=== PATIENT | male | born 1985 | race Caucasian/White ===

== ENCOUNTER 2018-02-20 16:37 | Emergency (ER) | payer OTHER ==
[2018-02-20 16:55] VITALS: BP 137/82
--- NOTE | 2018-02-20 17:17 | ED Physician Documentation ---
PD HPI UPPER EXT INJURY - Stated complaint Stated Complaint: L HAND LAC - Chief complaint Chief Complaint: Laceration - History obtained from History obtained from: Patient - History of Present Illness Location: Left, Wrist Type of injury: Laceration (from saw blade) Timing - onset: Today Timing - details: Abrupt onset Worsened by: Moving, Palpating Associated symptoms: No: Weakness, Numbness, Tingling Similar symptoms before: Has not had sx before Recently seen: Not recently seen Review of Systems Neurologic: denies: Focal weakness, Numbness PD PAST MEDICAL HISTORY - Past Medical History Endocrine/Autoimmune: None - Past Surgical History Past Surgical History: No - Present Medications Home Medications: Ambulatory Orders Medication Instructions Recorded Confirmed Hydrocodone/Acetaminophen [[place] 1 each PO Q6H PRN #20 tablet 05/05/15 5-325 Tablet] Ondansetron HCl [Zofran] 4 mg PO Q6H PRN #20 tablet 05/05/15 Oseltamivir [Tamiflu] 75 mg PO BID #10 capsule 05/05/15 predniSONE [Deltasone] 40 mg PO DAILY 5 Days tablet 05/05/15 - Allergies Allergies/Adverse Reactions: Allergies Allergy/AdvReac Type Severity Reaction Status Date / Time No Known Drug Allergies Allergy Verified 05/05/15 09:17 - Social History Does the pt smoke?: No Smoking Status: Never smoker Does the pt drink ETOH?: No Does the pt have substance abuse?: No - Immunizations Immunizations are current?: No PD ED PE NORMAL - Vitals Vital signs reviewed: Yes - General General: Alert and oriented X 3, No acute distress, Well developed/nourished - Derm Derm: Normal color, Warm and dry - Extremities Extremities: Other (left wrist with 2 cm laceration radial volar side. ) - Neuro Neuro: No motor deficit, No sensory deficit Results - Vitals Vitals: Oxygen O2 Source Room air Procedures - Laceration (location) left anterior wrist radial side Length in cm: 2 Wound type: Linear, Into subcut fat, Clean Neurovascular status: Sensory intact, Motor intact, Vascular intact Tendon involvement: No: Tendon Injury Anesthesia: Lidocaine 1% with epi Wound Preparation: Irrigated copiously NS Skin layer closure: Nylon, Interrupted, Size #-0 - enter number (4), Sutures - enter # (5) Other: Patient tolerated well, No complications, Neurovascular intact, Dressing applied, Tetanus UTD Complexity: Simple PD MEDICAL DECISION MAKING - ED course Complexity details: considered differential, d/w patient Departure - Departure Disposition: 01 Home, Self Care Clinical Impression: Laceration of left wrist Qualifiers: Encounter type: initial encounter Qualified Code(s): S61.512A - Laceration wit hout foreign body of left wrist, initial encounter Condition: Stable Record reviewed to determine appropriate education?: Yes Instructions: ED Laceration Ext Sutr Stap Tape Comments: It is okay to wash and shower. Clean off the wound twice a day with soap and water, or peroxide and water. Apply some antibiotic ointment to it to keep it moist. Also to watch for signs of infection such as purulence, redness or increasing pain. Return to your primary care or the ER at the specified time for suture removal. Suture removal 9-10 days. Discharge Date/Time: 02/20/18 18:13
[2018-02-20] MEDS ORDERED: BACITRACIN OINT TOP ONE (18:08)
== END 2018-02-20 18:13 | disposition home or self-care (01) ==
LOC: ED 16:37
DX: S61.512A Laceration without foreign body of left wrist, initial encounter (principal); W45.8XXA Other foreign body or object entering through skin, initial encounter
CPT/HCPCS: 12001; 99283; A9270

== ENCOUNTER 2019-05-08 10:12 | Emergency (ER) | payer OTHER ==
--- NOTE | 2019-05-08 12:44 | XRAY Report ---
Reason: R/O Fx Procedure Date: 05/08/2019 Accession Number: [id number] / [id number] Procedure: XR - Ankle 3 View RT CPT Code: Final Report FULL RESULT: EXAM: RIGHT ANKLE RADIOGRAPHY EXAM DATE: 05/08/2019 12:13 PM. CLINICAL HISTORY: Patient heard an audible pop with subsequent swelling of the lateral malleolus while playing with his kids. COMPARISON: None. TECHNIQUE: 3 views. FINDINGS: Bones: Normal. No fractures or bone lesions. Joints: Normal. No effusion. No subluxations. The ankle mortise is normally aligned. Soft Tissues: Normal. No soft tissue swelling. IMPRESSION: No fracture or significant soft tissue swelling identified. RADIA
--- NOTE | 2019-05-08 14:00 | ED Physician Documentation ---
PD HPI LOWER EXT INJURY - Stated complaint Stated Complaint: RT ANKLE PX - Chief complaint Chief Complaint: Ext Problem - History obtained from History obtained from: Patient, Family - History of Present Illness PD HPI LOW EXT INJURY LOCATION: Right, Ankle Type of injury: Twist Where injury occurred: Other (basketball) Timing - onset: Yesterday Timing - duration: Days (1) Timing - details: Gradual onset Pain level max: 8 Pain level now: 6 Improved by: Rest, Ice, Immobilization Worsened by: Moving, Palpating Associated symptoms: No: Weakness, Numbness, Tingling, Swelling, Discolored Contributing factors: No: Anticoagulated Recently seen: Not recently seen Review of Systems Musculoskeletal: denies: Neck pain, Back pain Neurologic: denies: Focal weakness, Numbness, Head injury PD PAST MEDICAL HISTORY - Past Medical History Past Medical History: Yes Endocrine/Autoimmune: None - Past Surgical History Past Surgical History: No - Present Medications Home Medications: Ambulatory Orders Medication Instructions Recorded Confirmed Hydrocodone/Acetaminophen [[place] 1 each PO Q6H PRN #20 tablet 05/05/15 5-325 Tablet] Ondansetron HCl [Zofran] 4 mg PO Q6H PRN #20 tablet 05/05/15 Oseltamivir [Tamiflu] 75 mg PO BID #10 capsule 05/05/15 predniSONE [Deltasone] 40 mg PO DAILY 5 Days tablet 05/05/15 Ibuprofen [Motrin] 800 mg PO Q8H PRN #30 tablet 05/08/19 - Allergies Allergies/Adverse Reactions: Allergies Allergy/AdvReac Type Severity Reaction Status Date / Time No Known Drug Allergies Allergy Verified 05/08/19 10:25 - Social History Does the pt smoke?: No Smoking Status: Never smoker Does the pt drink ETOH?: No Does the pt have substance abuse?: No - Immunizations Immunizations are current?: No PD ED PE NORMAL - Vitals Vital signs reviewed: Yes - General General: Alert and oriented X 3, No acute distress - HEENT HEENT: Moist mucous membranes - Neck Neck: Supple, no meningeal sign - Derm Derm: Warm and dry - Extremities Extremities: Other (R ankle - TTP R ankle lateral malleolus. o/w normal exam foot, ankle and prox tib/fib. NVI. No deformity.) - Neuro Neuro: Alert and oriented X 3 - Psych Psych: Normal mood, Normal affect Results - Vitals Vitals: Vital Signs - 24 hr 05/08/19 10:25 Temperature 36.5 C Heart Rate 81 Respiratory 14 Rate Blood Pressure 137/80 H O2 Saturation 97 Oxygen O2 Source Room air - Rads (name of study) R ankle xray Radiology: Prelim report reviewed, EMP read contemporaneously, See rad report (No fracture or significant soft tissue swelling identified. ) PD MEDICAL DECISION MAKING - ED course Complexity details: reviewed results, re-evaluated patient, considered differential, d/w patient ED course: Patient with a right ankle sprain. No acute findings on x-ray. Placed in a gel splint for comfort. Declines crutches. Neurovascular intact. Patient counseled regarding signs and symptoms for which I believe and urgent re- evaluation would be necessary. Patient with good understanding of and agreement to plan and is comfortable going home at this time This document was made in part using voice recognition software. While efforts are made to proofread this document, sound alike and grammatical errors may occur. Departure - Departure Disposition: 01 Home, Self Care Clinical Impression: Right ankle sprain Qualifiers: Encounter type: initial encounter Involved ligament of ankle: unspecified ligament Qualified Code(s): S93.401A - Sprain of unspecified ligament of right ankle, initial encounter Condition: Good Instructions: ED Sprain Ankle Follow-Up: your,doctor in 1 week [Other] Prescriptions: Ibuprofen [Motrin] 800 mg PO Q8H PRN #30 tablet PRN Reason: PAIN &/OR FEVER Comments: You can use the Motrin as needed for pain. There are no fractures on your x-ray today. You may bear weight as tolerated. The air splint will help to support the ankle as this heals.
[2019-05-08 14:03] VITALS: BP 139/79
== END 2019-05-08 14:04 | disposition home or self-care (01) ==
LOC: ED 10:12
DX: S93.401A Sprain of unspecified ligament of right ankle, initial encounter (principal); X50.1XXA Overexertion from prolonged static or awkward postures, initial encounter; Y93.67 Activity, basketball
CPT/HCPCS: 99283; 99284

== ENCOUNTER 2019-06-25 14:47 | Emergency (ER) | payer OTHER ==
[2019-06-25 14:57] VITALS: BP 167/92
[2019-06-25] MEDS ORDERED: LIDOCAINE 2% 50 ML MDV SUBQ STA (15:16)
[2019-06-25] MEDS ORDERED: LIDOCAINE-MPF 2% 5 ML VIAL SUBQ STA (15:19)
[2019-06-25] MEDS ORDERED: LIDOCAINE 1% 2 ML VIAL ONE (15:20)
--- NOTE | 2019-06-25 15:25 | ED Physician Documentation ---
History of Present Illness - Stated complaint Stated Complaint: L FINGER LAC - Chief complaint Chief Complaint: Laceration - History obtained from History obtained from: Patient - History of Present Illness Timing: Today Pain level max: 3 Pain level now: 2 - Additonal information Additional information: 34-year-old male, right-handed presents with a laceration to the left index finger. He suffered a partial tip amputation from a razor blade. Tetanus is up-to-date. Nothing makes it better or worse. Review of Systems Constitutional: denies: Fever GI: denies: Vomiting Skin: denies: Rash PD PAST MEDICAL HISTORY - Past Medical History Past Medical History: Yes Cardiovascular: None Respiratory: None Neuro: None Endocrine/Autoimmune: None GI: None : None HEENT: Chronic vision loss Psych: None Musculoskeletal: None Derm: None - Past Surgical History Past Surgical History: No - Present Medications Home Medications: Ambulatory Orders Medication Instructions Recorded Confirmed Hydrocodone/Acetaminophen [[place] 1 each PO Q6H PRN #20 tablet 05/05/15 5-325 Tablet] Ondansetron HCl [Zofran] 4 mg PO Q6H PRN #20 tablet 05/05/15 Oseltamivir [Tamiflu] 75 mg PO BID #10 capsule 05/05/15 predniSONE [Deltasone] 40 mg PO DAILY 5 Days tablet 05/05/15 Ibuprofen [Motrin] 800 mg PO Q8H PRN #30 tablet 05/08/19 - Allergies Allergies/Adverse Reactions: Allergies Allergy/AdvReac Type Severity Reaction Status Date / Time No Known Drug Allergies Allergy Verified 05/08/19 10:25 - Social History Does the pt smoke?: No Smoking Status: Never smoker Does the pt drink ETOH?: No Does the pt have substance abuse?: No - Immunizations Immunizations are current?: Yes - POLST Patient has POLST: No PD ED PE NORMAL - Vitals Vital signs reviewed: Yes - General General: Alert and oriented X 3, No acute distress - Derm Derm: Warm and dry - Extremities Extremities: Other - Neuro Neuro: Alert and oriented X 3 PD ED PE EXPANDED - Extremities ZULY UE/Hands Visual: 1 - laceration (1 cm oval avulsion. No bone visible. Neurovascular intact. No nail injury) Results - Vitals Vitals: Vital Signs - 24 hr 06/25/19 14:56 Temperature 37 C Heart Rate 85 Respiratory 14 Rate Blood Pressure 167/92 H O2 Saturation 98 Oxygen O2 Source Room air Procedures - Laceration (location) Left index finger Length in cm: 1 Wound type: Into subcut fat, Other (oval) Neurovascular status: Sensory intact, Motor intact, Vascular intact Tendon involvement: Tendon intact Anesthesia: Lidocaine 1% Wound Preparation: Irrigated copiously NS, Wound explored Skin layer closure: Dermabond Other: Patient tolerated well, No complications, Neurovascular intact Complexity: Simple PD MEDICAL DECISION MAKING - ED course Complexity details: considered differential, d/w patient ED course: Wound was cleansed and repaired with Dermabond. Dressing applied. Warnings of infection and instructions on wound care given at bedside. Also counseled on how to minimize scarring. Tetanus up-to-date patient counseled regarding signs and symptoms for which I believe and urgent re-evaluation would be necessary. Patient with good understanding of and agreement to plan and is comfortable going home at this time This document was made in part using voice recognition software. While efforts are made to proofread this document, sound alike and grammatical errors may occur. Departure - Departure Disposition: 01 Home, Self Care Clinical Impression: Laceration of left index finger Qualifiers: Encounter type: initial encounter Damage to nail status: without damage Foreign body presence: without foreign body Qualified Code(s): S61.211A - Laceration without foreign body of left index finger without damage to nail, initial encounter Condition: Good Instructions: ED Laceration Ext Skin Glue Follow-Up: OC CHAPARRO MD [Primary Care Provider] - As Needed Comments: Keep the wound clean. Return if you worsen. Return especially for redness, swelling or drainage from the wound. This will gradually heal over the next week or so.
[2019-06-25] MEDS ORDERED: LIDOCAINE 2% 50 ML MDV SUBQ SCH (16:00)
== END 2019-06-25 15:30 | disposition home or self-care (01) ==
LOC: ED 14:47
DX: S61.211A Laceration without foreign body of left index finger without damage to nail, initial encounter (principal); W26.8XXA Contact with other sharp object(s), not elsewhere classified, initial encounter; Y92.009 Unspecified place in unspecified non-institutional (private) residence as the place of occurrence of the external cause
CPT/HCPCS: 12001; 99282; 99283

== ENCOUNTER 2019-11-29 13:57 | Emergency (ER) | payer OTHER ==
[2019-11-29 14:09] VITALS: BP 129/85
--- NOTE | 2019-11-29 14:20 | ED Physician Documentation ---
History of Present Illness - Stated complaint Stated Complaint: R FOOT INJ - Chief complaint Chief Complaint: Laceration - Additonal information Additional information: 34-year-old male presents to the emergency department with pain and swelling on the sole of his right foot. He reports stepping on an exposed nail through flip-flops 3 days ago. He has had pain since but this a.m. he noted increased swelling and milky drainage from the sole of the foot. He has pain with weightbearing. Tetanus is up-to-date within the last 2 years. Patient denies any history of diabetes Review of Systems Constitutional: reports: Reviewed and negative Eyes: reports: Reviewed and negative Nose: reports: Reviewed and negative Throat: reports: Reviewed and negative Cardiac: reports: Reviewed and negative Respiratory: reports: Reviewed and negative GI: reports: Reviewed and negative : reports: Reviewed and negative Skin: reports: Lesions Musculoskeletal: reports: Extremity pain (right foot) Neurologic: reports: Reviewed and negative PD PAST MEDICAL HISTORY - Past Medical History Past Medical History: Yes Cardiovascular: None Respiratory: None Neuro: None Endocrine/Autoimmune: None GI: None : None HEENT: Chronic vision loss, Other Psych: None Musculoskeletal: None Derm: None - Past Surgical History Past Surgical History: No - Present Medications Home Medications: Ambulatory Orders Medication Instructions Recorded Confirmed Gentamicin 0.3% Ophth Drops 1 drops OPTH BID 7 Days #1 bottle 09/01/19 [Garamycin] traMADol [Ultram] 100 mg PO Q6H PRN 2 Days #8 tablet 09/01/19 Cephalexin [Keflex] 500 mg PO Q6H #28 capsule 11/29/19 Ciprofloxacin HCl [Cipro] 500 mg PO BID #14 tablet 11/29/19 - Allergies Allergies/Adverse Reactions: Allergies Allergy/AdvReac Type Severity Reaction Status Date / Time No Known Drug Allergies Allergy Verified 11/29/19 14:09 - Social History Does the pt smoke?: No Smoking Status: Never smoker Does the pt drink ETOH?: Yes Does the pt have substance abuse?: No - Immunizations Immunizations are current?: Yes - POLST Patient has POLST: No PD ED PE NORMAL - General General: Alert and oriented X 3, No acute distress, Well developed/nourished - Cardiac Cardiac: RRR - Respiratory Respiratory: No respiratory distress, Clear bilaterally - Extremities Extremities: No deformity. 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 The nail was embedded through rubber soled flip-flops. He was able to express purulent drainage this a.m. X-ray of the foot shows no obvious foreign body or fracture (read independently by myself). Tetanus is up-to-date. We will place this gentleman on Cipro and cephalexin to cover both staph/strep and Pseudomonas. Patient also advised warm Epson salt soaks. He will follow-up with [facility]. Emergent return precautions discussed Departure - Departure Disposition: 01 Home, Self Care Clinical Impression: Puncture wound Condition: Stable Record reviewed to determine appropriate education?: Yes Instructions: ED Wound Puncture General Prescriptions: Ciprofloxacin HCl [Cipro] 500 mg PO BID #14 tablet Cephalexin [Keflex] 500 mg PO Q6H #28 capsule Comments: Parker the x-ray of your foot does not show any obvious foreign body or fracture.Is important to start antibiotics now that you have an infection. Please take the Cipro and Keflex as prescribed. Follow-up with [facility] within the next week. If despite the oral antibiotics you are having increased pain fevers redness swelling or milky drainage please return to the emergency department for a second look.
--- NOTE | 2019-11-29 14:39 | XRAY Report ---
PROCEDURE: Foot 3 View RT INDICATIONS: STEPPED ON NAIL TECHNIQUE: 3 views of the foot were acquired. COMPARISON: none FINDINGS: Bones: No fractures or dislocations. No suspicious bony lesions. Soft tissues: No tibiotalar joint effusion. Achilles tendon appears normal. No radio-opaque foreig n body. IMPRESSION: No visualized acute fracture or dislocation. However, occult injury cannot be excluded. Recommend chava rt interval imaging follow-up in 7-10 days as clinically indicated for additional evaluation. Reviewed by: Dominique Cole MD on 11/29/2019 2:37 PM PDT Approved by: Dominique Cole MD on 11/29/2019 2:37 PM PDT Station ID: [id number]
== END 2019-11-29 14:40 | disposition home or self-care (01) ==
LOC: ED 13:57
DX: S91.331A Puncture wound without foreign body, right foot, initial encounter (principal); W22.09XA Striking against other stationary object, initial encounter
CPT/HCPCS: 99283; 99284

== ENCOUNTER 2022-07-07 08:30 | Outpatient (CLI) | payer OTHER ==
--- NOTE | 2022-07-07 17:01 | XRAY Report ---
PROCEDURE: Arthrogram Needle Placement INDICATIONS: PAIN IN LEFT SHOULDER CONTRAST: Dilute Gadavist FLUOROSCOPY TIME: 0.5 TECHNIQUE: The indications, alternatives, benefits, risks, and complications of the procedure were explained to the patient. Written informed consent was obtained and placed in the chart. The shoulder was examin ed fluoroscopically and a site for needle placement chosen for entry into the glenohumeral joint from an anterior approach. The skin was prepped and draped in the usual fashion, and 1% lidocaine infilt rated from skin down to joint capsule. A spinal needle was inserted into the glenohumeral joint, and a small amount of iodinated contrast media injected to confirm intra-articular placement of the need le tip. This was followed by approximately 12 mL dilute solution of a gadolinium containing MR contr ast agent. The needle was removed and a dressing was applied. The patient was given postprocedural instructions and sent to the MR suite for MR imaging. FINDINGS: A single fluoroscopic spot image demonstrates intra-articular location of injected iodinated contrast . IMPRESSION: Successful fluoroscopically guided administration of dilute Gadolinium solution into the shoulder adelia bustillos for MR arthrogram. Reviewed by: Violet Deleon MD on 07/07/2022 5:00 PM PDT Approved by: Violet Deleon MD on 07/07/2022 5:00 PM PDT Station ID: [id number]
--- NOTE | 2022-07-07 20:45 | MRI Report ---
PROCEDURE: ARTHROGRAM SHOULDER - LT INDICATIONS: PAIN IN LEFT SHOULDER TECHNIQUE: After the administration of 12 mL of dilute intra-articular Gadolinium contrast, oblique coronal T1 a nd T2 spin echo with fat saturation, oblique sagittal T1 spin echo with and without fat saturation, o blique sagittal T2 fast spin echo with fat saturation, axial T1 spin echo with fat saturation through the shoulder. COMPARISON: None. FINDINGS: Image quality: Excellent. Rotator cuff: Low-grade articular and bursal surface partial-thickness tear involving distal supraspi natus at its insertion on humeral head is seen extending to musculotendinous junction. Distal infrasp inatus tendinosis is noted. Distal subscapularis tendon is intact. No full-thickness rotator cuff ten don rupture.. No rotator cuff muscle atrophy on sagittal images. Bones and bursae: No bone marrow contusions or fractures. [id number] acromioclavicular joint o steoarthritic changes are seen with joint space narrowing, subchondral sclerosis and downward osteoph yte formation depressing on musculotendinous junction of supraspinatus.. The acromion demonstrates c onventional anatomy, without an os acromiale. Moderate glenohumeral joint osteoarthritic changes are seen with joint space narrowing, subchondral sclerosis and prominent inferior marginal osteophyte fo rmation. Capsule and soft tissues: There is signal abnormality, contour irregularity and contrast extension in superior anterior labrum at 12 to 2:00 position suggestive of superior anterior labral tear. There i s also suggestion of posterior inferior labral tear at 7 to 9:00 position with small adjacent perilab ral cyst measures 1 x 0.6 cm in size. Signal abnormality and contrast extension in anterior inferior labrum at 4 to 6:00 position is also noted. The glenohumeral ligaments appear intact. The long head of the biceps tendon appears thickened with intrasubstance T2 hyperintense signal. The rotator inter angel appears normal, without fibrosis. The coracohumeral ligament is of normal thickness. No intra-a rticular bodies. IMPRESSION: 1. Low-grade articular and bursal surface partial-thickness tear involving distal supraspinatus exten ding to musculotendinous junction. Distal infraspinatus tendinosis. No full-thickness rotator cuff te ndon rupture. 2. Mild to moderate acromioclavicular joint osteoarthritis and moderate glenohumeral joint osteoarthr itis. 3. Suggestion of superior anterior labral tear at 12 to 2:00 position, anterior inferior labral tear at 4 to 6:00 position and posterior inferior labral tear at 7 to 9:00 position with adjacent perilabr al cyst. 4. Proximal long head of biceps tendinosis. Reviewed by: Bradeen Villagomez MD on 07/07/2022 8:43 PM PDT Approved by: Braeden Villagomez MD on 07/07/2022 8:43 PM PDT Station ID: [id number]
== END 2022-07-07 08:31 | disposition home or self-care (01) ==
LOC: DI 08:30
DX: M75.112 Incomplete rotator cuff tear or rupture of left shoulder, not specified as traumatic (principal); M19.012 Primary osteoarthritis, left shoulder; M67.922 Unspecified disorder of synovium and tendon, left upper arm
CPT/HCPCS: 23350; 73222; 77002; A9585; Q9966

== ENCOUNTER 2022-07-10 10:33 | Emergency (ER) | payer OTHER ==
[2022-07-10] MEDS ORDERED: KETOROLAC 60 MG/2 ML VIAL IM STA (11:38)
[2022-07-10 12:00] LABS: BASOPHILS % (AUTO) 0.4 %; EOSINOPHILS % (AUTO) 0.3 %; HCT - HEMATOCRIT 43.2 % (42.0-52.0); HGB - HEMOGLOBIN 14.3 g/dL (14.0-18.0); LYMPHOCYTES # (AUTO) 0.6 10^3/uL (1.5-3.5); LYMPHOCYTES % (AUTO) 7.6 %; MEAN CORPUSCULAR HEMOGLOBIN 29.1 pg (27.0-31.0); MEAN CORPUSCULAR HGB CONC 33.1 g/dL (32.0-36.0); MONOCYTES # (AUTO) 0.6 10^3/uL (0.0-1.0); MONOCYTES % (AUTO) 8.7 %; NEUTROPHILS # (AUTO) 6.1 10^3/uL (1.5-6.6); NEUTROPHILS % (AUTO) 82.6 %; PLT - PLATELET COUNT 148 10^3/uL (130-450); RED BLOOD COUNT 4.91 10^6/uL (4.70-6.10); RED CELL DISTRIBUTION WIDTH 11.6 % (12.0-15.0); WHITE BLOOD COUNT 7.3 x10^3/uL (4.8-10.8)
[2022-07-10 12:16] LABS: CALCIUM 8.5 mg/dL (8.5-10.3); CREATININE 1.3 mg/dL (0.6-1.2); CRP - C-REACTIVE PROTEIN 10.6 mg/dL (0-1.0); POTASSIUM 3.3 mmol/L (3.5-5.0)
[2022-07-10 12:18] VITALS: BP 133/72
--- NOTE | 2022-07-10 12:40 | ED Physician Documentation ---
History of Present Illness - Stated complaint Stated Complaint: LT SHOULDER PX - Chief complaint Chief Complaint: Ext Problem - History obtained from History obtained from: Patient - History of Present Illness Timing: How many days ago (4) Pain level max: 8 Pain level now: 6 - Additonal information Additional information: 37-year-old male presents with left shoulder pain. Worse with movement, better with rest. He states that he had an arthrogram/MRI done approximately 4 days ago. The next day noted increased pain to the shoulder. States pain is steadily increased since that time. No fevers. No chills. No redness. No numbness or tingling. Took Tylenol without relief. States it feels better hanging straight down Review of Systems Constitutional: denies: Fever, Chills GI: denies: Vomiting, Diarrhea Skin: denies: Rash PD PAST MEDICAL HISTORY - Past Medical History Cardiovascular: None Respiratory: None Neuro: None Endocrine/Autoimmune: None GI: None : None HEENT: Chronic vision loss Psych: None Musculoskeletal: None Derm: None - Past Surgical History Past Surgical History: No - Present Medications Home Medications: Ambulatory Orders Medication Instructions Recorded Confirmed HYDROcod/ACETAM 5/325 [[place] 5/325] 1 tab PO Q4H PRN #15 tablet 11/03/21 Meloxicam [Mobic] 7.5 mg PO BID PRN #20 tablet 07/10/22 Oxycodone HCl/Acetaminophen 1 - 2 each PO Q6H PRN #14 tablet 07/10/22 [Percocet 5-325 mg Tablet] MDD 6 tabs - Allergies Allergies/Adverse Reactions: Allergies Allergy/AdvReac Type Severity Reaction Status Date / Time No Known Drug Allergies Allergy Verified 07/10/22 10:41 - Social History Does the pt smoke?: No Smoking Status: Never smoker Does the pt drink ETOH?: Yes Does the pt have substance abuse?: No - Immunizations Immunizations are current?: Yes - POLST Patient has POLST: No PD ED PE NORMAL - Vitals Vital signs reviewed: Yes - General General: Alert and oriented X 3, No acute distress - HEENT HEENT: Moist mucous membranes - Neck Neck: Supple, no meningeal sign - Derm Derm: Warm and dry - Extremities Extremities: Other - Neuro Neuro: Alert and oriented X 3 - Free text exam Free text exam: Tender to palpation over the left shoulder, mainly anterior near where the injection was performed. There is small bruising at the site. There are no skin changes. No redness. There is pain with external rotation of the glenohumeral joint. There is limited range of motion with abduction, external rotation, flexion and extension of the joint. Internal rotation feels the best. Neurovascular intact. Results - Vitals Vitals: Vital Signs - 24 hr 07/10/22 07/10/22 10:37 12:18 Temperature 36.8 C Heart Rate 108 H 90 Respiratory 16 13 Rate Blood Pressure 140/78 H 133/72 H O2 Saturation 97 100 Oxygen O2 Source Room air - Labs Labs: Laboratory Tests 07/10/22 07/10/22 07/10/22 11:54 11:54 11:54 WBC 7.3 RBC 4.91 Hgb 14.3 Hct 43.2 MCV 88.0 MCH 29.1 MCHC 33.1 RDW 11.6 L Plt Count 148 MPV 10.0 Neut # (Auto) 6.1 Lymph # (Auto) 0.6 L [place] # (Auto) 0.6 Eos # (Auto) 0.0 Baso # (Auto) 0.0 Absolute Nucleated RBC 0.00 Nucleated RBC % 0.0 ESR 18 H Sodium 138 Potassium 3.3 L Chloride 102 Carbon Dioxide 28 Anion Gap 8.0 BUN 19 Creatinine 1.3 H Estimated GFR (MDRD) 61 L Glucose 188 H Calcium 8.5 C-Reactive Protein 10.6 H PD Medical Decision Making - ED course Complexity details: reviewed results, re-evaluated patient, considered differential, d/w patient, d/w bridal consultant ED course: No significant findings on CBC. Sed rate mildly elevated at 18 and CRP is elevated at 10.6. Discussed the case with Dr. Fischer, orthopedics on-call, suspect that this is increased pain secondary to the recent arthrogram. Pain improved with ketorolac. Will place on anti-inflammatory medications as well as a short course of narcotic pain medication for breakthrough. Patient declines a sling. We will have him follow-up with his PCP for further care. No evidence of septic joint at this time. Patient counseled regarding signs and symptoms for which I believe and urgent re-evaluation would be necessary. Patient with good understanding of and agreement to plan and is comfortable going home at this time This document was made in part using voice recognition software. While efforts are made to proofread this document, sound alike and grammatical errors may occur. Departure - Departure Disposition: 01 Home, Self Care Clinical Impression: Shoulder pain Qualifiers: Chronicity: acute Laterality: left Qualified Code(s): M25.512 - Pain in left shoulder Condition: Good Instructions: ED Torn Rotator Cuff Follow-Up: TANJA CHEEMA MD [Primary Care Provider] - Within 1 week Prescriptions: Meloxicam [Mobic] 7.5 mg PO BID PRN #20 tablet PRN Reason: Pain Oxycodone HCl/Acetaminophen [Percocet 5-325 mg Tablet] 1 - 2 each PO Q6H PRN #14 tablet MDD 6 tabs PRN Reason: pain Comments: Please follow-up with your doctor for further care. Your testing today does not show any significant abnormalities, the inflammation is not uncommon following your procedure. I did speak with Dr. Fischer, orthopedics today. Continue to gently move your arm as well. [facility] [place]. I am prescribing a short course of narcotic pain medication for you. These are potentially dangerous and addictive medications that should be used carefully. These medications may constipate you. Take an [id number] stool softener (docusate) twice daily with plenty of water while taking these medications. If you go 24 hours without a bowel movement, take [id number] miralax, per package instructions. Do not drink or drive while taking these medications. If you received narcotic or sedating medications while in the emergency department, do not drive for 24 hours. Store this medication in a safe, secure place and out of reach of children. It is a violation of federal law to give or sell this medication to another person or to use in a manner other than prescribed. The ED will not refill narcotic prescriptions, including prescriptions lost or stolen. To dispose of unwanted medications: 1. [facility] at [address] in [place] has a medication drop box. They accept prescription medications (in pill form) Wednesday through Wednesday 9:00 a.m. to 5:00 p.m. 2. [facility] accepts prescription medications (in pill form only) for disposal year round. Call for more information. 3. Contact the [facility] for the next [facility] sponsored prescription drug collection event. , [phone], or [phone]; Discharge Date/Time: 07/10/22 12:44
== END 2022-07-10 12:44 | disposition home or self-care (01) ==
LOC: ED 10:33
DX: M25.512 Pain in left shoulder (principal)
CPT/HCPCS: 36415; 80048; 85025; 85651; 86140; 96372; 99283; 99284

== ENCOUNTER 2022-07-16 16:24 | Emergency (ER) | payer OTHER ==
[~2022-07-16 16:24] MED LIST: ROPIVACAINE 0.2% PF 10 ML VIAL SUBQ ONE
[2022-07-16] MEDS ORDERED: ROPIVACAINE 0.2% PF 20 ML AMPULE SUBQ ONE (16:50)
[2022-07-16] MEDS ORDERED: LIDOCAINE 1%-EPI 1:100000 20 ML MDV SUBQ STA (16:50)
--- NOTE | 2022-07-16 16:51 | ED Physician Documentation ---
PD HPI UPPER EXT INJURY - Stated complaint Stated Complaint: SEVERE SHOULDER PX - Chief complaint Chief Complaint: Ext Problem - History obtained from History obtained from: Patient - Additonal information Additional information: 37-year-old gentleman had been dealing with some left shoulder pain, nondominant for quite some time. He had an arthrogram with MRI on the . The MRI demonstrated articular and bursal surface partial-thickness tear of the distal supraspinatus, distal infraspinatus tendinosis, no full-thickness rotator cuff tendon rupture. 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 Suggestion of superior anterior labral tear, anterior inferior labral tear and posterior inferior labral tear and proximal long head biceps tendinosis. The next day he woke up with pain that was much worse and different than his usual shoulder pain and since then has been progressive. He saw my partner a few days ago at which point he had a normal white count, and mildly elevated ESR and CRP. He continues to have worsening pain. No fevers. PD PAST MEDICAL HISTORY - Past Medical History Cardiovascular: None Respiratory: None Neuro: None Endocrine/Autoimmune: None GI: None : None HEENT: Chronic vision loss Psych: None Musculoskeletal: None Derm: None - Past Surgical History Past Surgical History: No - Present Medications Home Medications: Ambulatory Orders Medication Instructions Recorded Confirmed Meloxicam [Mobic] 7.5 mg PO BID PRN #20 tablet 07/10/22 Oxycodone HCl/Acetaminophen 1 - 2 each PO Q6H PRN #14 tablet 07/10/22 [Percocet 5-325 mg Tablet] MDD 6 tabs - Allergies Allergies/Adverse Reactions: Allergies Allergy/AdvReac Type Severity Reaction Status Date / Time No Known Drug Allergies Allergy Verified 07/16/22 16:30 - Social History Does the pt smoke?: No Smoking Status: Never smoker Does the pt drink ETOH?: Yes Does the pt have substance abuse?: No - Immunizations Immunizations are current?: Yes - POLST Patient has POLST: No PD ED PE NORMAL - Vitals Vital signs reviewed: Yes - General General: Alert and oriented X 3, No acute distress - Back Back: No CVA TTP, No spinal TTP - Derm Derm: Normal color, Warm and dry - Extremities Extremities: Other (The left shoulder appears grossly normal. There is some ecchymosis anteriorly from the injection previously. He is unable to range it at all. It is not red or hot.) - Neuro Neuro: Alert and oriented X 3, Normal speech Results - Vitals Vitals: Vital Signs - 24 hr 07/16/22 16:27 Temperature 36.8 C Heart Rate 90 Respiratory 16 Rate Blood Pressure 151/84 H O2 Saturation 100 Oxygen O2 Source Room air - Labs Labs: Microbiology 07/16/22 17:15 Body Fluid Culture - Preliminary Synovial Fluid Laboratory Tests 07/16/22 07/16/22 07/16/22 17:03 17:03 17:03 WBC 5.4 RBC 4.87 Hgb 13.9 L Hct 43.0 MCV 88.3 MCH 28.5 MCHC 32.3 RDW 11.9 L Plt Count 214 MPV 9.5 Neut # (Auto) 3.9 Lymph # (Auto) 1.1 L [place] # (Auto) 0.4 Eos # (Auto) 0.0 Baso # (Auto) 0.0 Absolute Nucleated RBC 0.00 Nucleated RBC % 0.0 ESR 49 H Sodium 139 Potassium 3.8 Chloride 102 Carbon Dioxide 27 Anion Gap 10.0 BUN 22 H Creatinine 1.1 Estimated GFR (MDRD) 75 L Glucose 118 H Calcium 8.4 L C-Reactive Protein 5.4 H Procalcitonin Fluid Source Fluid Color Fluid Clarity Fluid WBC Fluid RBC 07/16/22 07/16/22 17:03 17:15 WBC RBC Hgb Hct MCV MCH MCHC RDW Plt Count MPV Neut # (Auto) Lymph # (Auto) [place] # (Auto) Eos # (Auto) Baso # (Auto) Absolute Nucleated RBC Nucleated RBC % ESR Sodium Potassium Chloride Carbon Dioxide Anion Gap BUN Creatinine Estimated GFR (MDRD) Glucose Calcium C-Reactive Protein Procalcitonin 0.10 Fluid Source JOINT Fluid Color YELLOW Fluid Clarity TURBID Fluid WBC 152028 Fluid RBC 7000 Procedures - Arthrocentesis Joint: Shoulder, Left Preparation: Consent obtained, Sterile prep and drape Anesthesia: Lidocaine 1%, Other Fluid: Sent for cell count, Sent for crystals, Fluid obtained - cc (15ml), Sent for gram stain, Purulent Aftercare: Dressing applied, Patient tolerated well (did get vagal) PD Medical Decision Making - ED course ED course: 37-year-old gentleman had left shoulder MRI with arthrogram on the and has progressive pain ever since. Physically the joint does not look infected, but of course that is concerning given the time course. As such the patient consented for arthrocentesis and this was done and grossly purulent material was obtained. We do not have orthopedics video production specialist. I discussed the case initially with Dr. Campos Power at [facility] who accepts and recommends ED to ED transfer. Subsequently excepted to [facility] ED by Dr. Bowens. Cobras were completed. Vancomycin 2.5 g was ordered IV. Initial white blood cell count from the joint was [phone]. The Gram stain was negative. I will add Rocephin pending cultures. Departure - Departure Disposition: 02 Transfer Acute Care Hosp Clinical Impression: Septic arthritis of shoulder, left Condition: Serious Record reviewed to determine appropriate education?: Yes
[2022-07-16 16:56] VITALS: BP 151/84
[2022-07-16 17:08] LABS: BASOPHILS % (AUTO) 0.2 %; EOSINOPHILS % (AUTO) 0.2 %; HGB - HEMOGLOBIN 13.9 g/dL (14.0-18.0); LYMPHOCYTES # (AUTO) 1.1 10^3/uL (1.5-3.5); LYMPHOCYTES % (AUTO) 19.8 %; MEAN CORPUSCULAR HEMOGLOBIN 28.5 pg (27.0-31.0); MEAN CORPUSCULAR HGB CONC 32.3 g/dL (32.0-36.0); MEAN CORPUSCULAR VOLUME 88.3 fL (80.0-94.0); MEAN PLATELET VOLUME 9.5 fL (7.4-11.4); MONOCYTES # (AUTO) 0.4 10^3/uL (0.0-1.0); NEUTROPHILS # (AUTO) 3.9 10^3/uL (1.5-6.6); NEUTROPHILS % (AUTO) 72.4 %; PLT - PLATELET COUNT 214 10^3/uL (130-450); RED BLOOD COUNT 4.87 10^6/uL (4.70-6.10); RED CELL DISTRIBUTION WIDTH 11.9 % (12.0-15.0); WHITE BLOOD COUNT 5.4 x10^3/uL (4.8-10.8)
[2022-07-16] MEDS ORDERED: VANCOMYCIN INJ 2.5 GM in SODIUM CHLORIDE 0.9% 500 ML IV STA (17:24)
[2022-07-16 17:37] LABS: CALCIUM 8.4 mg/dL (8.5-10.3); CREATININE 1.1 mg/dL (0.6-1.2); CRP - C-REACTIVE PROTEIN 5.4 mg/dL (0-1.0); POTASSIUM 3.8 mmol/L (3.5-5.0)
[2022-07-16] MEDS ORDERED: HYDROmorphone 1 MG/ML CARPUJECT IVP STA (17:42)
[2022-07-16] MEDS ORDERED: KETOROLAC 15 MG/ML VIAL IVP STA (17:42)
[2022-07-16 18:09] LABS: BF CLARITY TURBID; BF COLOR YELLOW; BF SOURCE JOINT; CC,BF RBC 7000 /mm^3; CC,BF WBC 206960 /mm^3
[2022-07-16] MEDS ORDERED: cefTRIAXone 2 GM VIAL IVP STA (18:10)
[2022-07-16 18:33] LABS: LYMPHOCYTES %,BODY FLUID 1 %; MACROPHAGES %,BODY FLUID 3 %; NEUTROPHILS %, BF 96 %
== END 2022-07-16 18:24 | disposition short-term general hospital (02) ==
LOC: ED 16:24
DX: M00.9 Pyogenic arthritis, unspecified (principal); Z20.822 Contact with and (suspected) exposure to COVID-19
CPT/HCPCS: 20610; 36415; 80048; 84145; 85025; 85651; 86140; 87070; 87181; 87205; 87635; 89051; 89060; 96372; 96374; 96375; 99285; J1170; J3370

== ENCOUNTER 2022-07-16 18:21 | Outpatient (CLI) | payer OTHER | END 2022-07-16 18:22 | disposition short-term general hospital (02) | LOC: EMS 18:21 | PROVIDERS: ATTEND Emergency Medicine | DX: M00.812 Arthritis due to other bacteria, left shoulder (principal) | CPT/HCPCS: A0425; A0427 ==